=== PATIENT | female | born 1995 | race Caucasian/White ===

== ENCOUNTER 2023-04-23 17:08 | Inpatient (IN) ==
[2023-04-23] MEDS ORDERED: LORazepam 1 MG TAB PO STA (17:51)
--- NOTE | 2023-04-23 17:51 | Emergency Department Note ---
Impression & Plan Depression with suicidal ideation, Anxiety ED Provider Note NAME: TAMAR BAXTER AGE: 27 SEX: F : 1995 ARRIVES VIA: Walk-In INFORMANT: Patient, ED PROVIDER(S): Roberto Reyna DO CHIEF COMPLAINT: Mental health evaluation HPI: The patient is a 27-year-old female who presented to the emergency department for an evaluation of mental health issues. The patient has a history of depression and anxiety in the past. The patient has no history of suicidal attempt gesture or admission for mental health issues. 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 She goes to [employer] in [facility]. She normally lives in [facility]. The patient states that [place] [address] She started having what she describes as intrusive thoughts including thoughts that she should kill herself. She was having thoughts of jumping off a bridge [place] [address] as well as driving her car off the road and getting into a major accident. The patient has many stressors. She did review some of her stressors which include her son as well as her significant other. She also describes stressors at work. The patient presented to the emergency department requesting help because she did not feel safe. ROS: See above HPI for pertinent positives & negatives. A total of 10 systems reviewed and were otherwise negative. PAST MEDICAL HISTORY: See Below PAST SURGICAL HISTORY: See Below FAMILY HISTORY: See Below SOCIAL HISTORY: See Below HOME MEDICATIONS: See Below ALLERGIES: See Below VITALS: See Below PHYSICAL EXAMINATION: GENERAL: The patient is awake and alert. The patient is very anxious. She appears tearful. EYES: The conjunctivae are clear. The pupils are round and reactive. EARS, NOSE, MOUTH AND THROAT: The nose is without any evidence of any deformity. NECK: The neck is nontender and supple. RESPIRATORY: Normal respiratory effort is noted there is no evidence of wheezing rhonchi or rales CARDIOVASCULAR: Regular rate and rhythm noted there no murmurs rubs or gallops normal S1 normal S2. GASTROINTESTINAL: The abdomen is soft. Abdomen is nontender. MUSCULOSKELETAL/EXTREMITIES: There is no evidence of gross deformity full range of motion is noted in the hips and shoulders. SKIN: There is no obvious evidence of any rash. There are no petechiae, pallor or cyanosis noted. NEUROLOGIC: Patient is awake alert and oriented x3 strength is symmetric patellar reflexes are 2+ bilaterally PSYCH: The patient makes poor eye contact at times. Her affect is very flat. She is currently admitting to suicidal ideation with a plan to hurt herself either by jumping off a bridge or crashing her car. MEDICAL DECISION MAKING: The patient is a 27-year-old female who presented to the emergency department for an evaluation of depression with suicidal ideation. The patient's been having issues especially over the last few weeks. She has many stressors. The patient stopped our facility because she did not feel safe. She was [place] and [place]. I discussed the patient's laboratory results with her. She was medically cleared in the emergency department. The patient was evaluated by the mental health residential case manager. She was felt to be a good candidate for inpatient management. At [facility] She has a referral pending to [facility] Triage Nursing notes reviewed. Prior medical records reviewed Vital Signs: reviewed and remarkable for elevated blood pressure. Differential diagnosis: Mood disorder, infection, hypoglycemia, electrolyte abnormalities, cardiac sources, intracerebral event, toxicologic, trauma, neurologic, as well as other pathologies. ER treatment provided: See below Diagnostics interpreted by me: ECG: none Laboratory studies: As stated above and show below. Imaging studies: See below. Consultation(s): I discussed this case with the emergency department off residential case manager. The patient was evaluated by the delegate from [facility]. She was felt to be a good candidate for inpatient management on our unit. I did sign the patient's 201 at this time Past Med/Surg History Medical History Anxiety Depression Surgical History H/O bariatric surgery Social History Smoking Status: Never smoker Feels Safe at Home: Yes Gender Identity: Female Allergies Allergies Allergy/AdvReac Type Severity Reaction Status Date / Time No Known Allergies Allergy Unverified 04/23/23 19:26 Home Meds Home Medications Medication Instructions Recorded Confirmed No Known Home Medications 04/23/23 04/23/23 Results & Data (ED) Vital Signs Vital Signs - 24 hr 04/23/23 17:13 Temperature 36.9 C Temperature Source Temporal Artery Scan Pulse Rate 89 Respiratory Rate 18 Respiratory Effort / Characteristics Non-Labored Respiratory Depth Normal Respiratory Pattern Regular Blood Pressure 141/92 H Blood Pressure Mean 108 Pulse Oximetry 97 Oxygen Delivery Method Room Air Sepsis Recent Fever Within 48 Hours No Sepsis New/Unexplained Change in Mental Status N/A Sepsis Action Taken by Nursing No Action Required Home Medications Current Medication List: was personally reviewed by me Laboratory Data Attestation: I reviewed the patient's lab results. 04/23/23 17:45 04/23/23 17:45 Lab Results 04/23/23 04/23/23 04/23/23 Range/Units 17:35 17:35 17:35 WBC (4.8-10.8) K/ul RBC (4.20-5.40) M/uL Hgb (12.0-16.0) g/dl Hct (37.0-47.0) % MCV (80.0-100.0) fL MCH (25.0-34.0) pg MCHC (32.0-36.0) g/dL RDW Std Deviation (36.4-46.3) fL RDW Coeff of Rola (11.5-14.5) % Plt Count (130-400) K/uL MPV (9.4-12.4) fL Immature Gran % (Auto) % Neut % (Auto) % Lymph % (Auto) % [place] % (Auto) % Eos % (Auto) % Baso % (Auto) % Neut # (Auto) (1.40-6.50) K/uL Lymph # (Auto) (1.20-3.40) K/uL [place] # (Auto) (0.11-0.59) K/uL Eos # (Auto) (0.00-0.50) K/uL Baso # (Auto) (0.00-0.20) K/uL Immature Gran # (Auto) (0.01-0.20) K/uL Sodium (136-145) mmol/L Potassium (3.5-5.1) mmol/L Chloride (98-107) mmol/L Carbon Dioxide (21-32) mmol/L Anion Gap (3-11) BUN (6-23) mg/dl Creatinine (0.6-1.2) mg/dl Est Cr Clr Drug Dosing ml/min Est GFR ( Amer) ml/min Est GFR (Non-Af Amer) ml/min BUN/Creatinine Ratio (10-20) Glucose (70-99(Fasting)) mg/dl Calcium (8.6-10.3) mg/dl Total Bilirubin (0.2-1.0) mg/dl AST (13-39) U/L ALT (7-52) U/L Alkaline Phosphatase (34-104) U/L Total Protein (6.0-8.3) gm/dl Albumin (3.4-5.0) gm/dl Globulin (2.5-4.0) gm/dl Albumin/Globulin Ratio (0.9-2) TSH (0.300-4.500) uIu/ml HCG, Qual (Negative) Urine Color Yellow Urine Appearance Clear (Clear) Urine pH 6.5 (4.5-7.5) Ur Specific [place] 1.018 (1.000-1.030) Urine Protein Negative (Negative) Urine Glucose (UA) Negative (Negative) Urine Ketones 1+ H (Negative) Urine Blood Negative (Negative) Urine Nitrite Negative (Negative) Urine Bilirubin Negative (Negative) Urine Urobilinogen Negative (Negative) Ur Leukocyte Esterase Trace H (Negative) Urine WBC (Auto) 1-5 (0-5) /hpf Urine RBC (Auto) 0-4 (0-4) /hpf U Hyaline Cast (Auto) 5-10 H (0-5) /lpf U Epithel Cells (Auto) >30 H (0-5) /lpf Urine Bacteria (Auto) 1+ H (Negative) Salicylates (3.0-30) mg/dl Urine Opiates Screen Neg (Neg) Ur Methadone, Qual Neg (Neg) Acetaminophen (10-30) ug/ml Urine Barbiturates Neg (Neg) Ur Phencyclidine (PCP) Neg (Neg) U Amphetamin/Meth Scrn Neg (Neg) MDMA (Ecstasy) Screen Neg (Neg) U Benzodiazepines Scrn Neg (Neg) Ur Cocaine Metabolite Neg (Neg) U Marijuana (THC) Screen Neg (Neg) Ethyl Alcohol mg/dL (<10.0) mg/dl SARS-CoV-2, RNA, NAAT NEGATIVE (NEGATIVE) 04/23/23 04/23/23 04/23/23 Range/Units 17:45 17:45 17:45 WBC 6.18 (4.8-10.8) K/ul RBC 4.79 (4.20-5.40) M/uL Hgb 13.4 (12.0-16.0) g/dl Hct 39.4 (37.0-47.0) % MCV 82.3 (80.0-100.0) fL MCH 28.0 (25.0-34.0) pg MCHC 34.0 (32.0-36.0) g/dL RDW Std Deviation 40.0 (36.4-46.3) fL RDW Coeff of Rola 13.4 (11.5-14.5) % Plt Count 187 (130-400) K/uL MPV 10.1 (9.4-12.4) fL Immature Gran % (Auto) 0.2 % Neut % (Auto) 69.3 % Lymph % (Auto) 23.8 % [place] % (Auto) 5.5 % Eos % (Auto) 0.6 % Baso % (Auto) 0.6 % Neut # (Auto) 4.28 (1.40-6.50) K/uL Lymph # (Auto) 1.47 (1.20-3.40) K/uL [place] # (Auto) 0.34 (0.11-0.59) K/uL Eos # (Auto) 0.04 (0.00-0.50) K/uL Baso # (Auto) 0.04 (0.00-0.20) K/uL Immature Gran # (Auto) 0.01 (0.01-0.20) K/uL Sodium 138 (136-145) mmol/L Potassium 3.5 (3.5-5.1) mmol/L Chloride 105 (98-107) mmol/L Carbon Dioxide 25 (21-32) mmol/L Anion Gap 8 (3-11) BUN 11 (6-23) mg/dl Creatinine 0.61 (0.6-1.2) mg/dl Est Cr Clr Drug Dosing 140.8 ml/min Est GFR ( Amer) 142.0 ml/min Est GFR (Non-Af Amer) 122.5 ml/min BUN/Creatinine Ratio 18.0 (10-20) Glucose 95 (70-99(Fasting)) mg/dl Calcium 9.9 (8.6-10.3) mg/dl Total Bilirubin 0.7 (0.2-1.0) mg/dl AST 17 (13-39) U/L ALT 10 (7-52) U/L Alkaline Phosphatase 58 (34-104) U/L Total Protein 7.7 (6.0-8.3) gm/dl Albumin 4.9 (3.4-5.0) gm/dl Globulin 2.8 (2.5-4.0) gm/dl Albumin/Globulin Ratio 1.8 (0.9-2) TSH 1.442 (0.300-4.500) uIu/ml HCG, Qual (Negative) Urine Color Urine Appearance (Clear) Urine pH (4.5-7.5) Ur Specific [place] (1.000-1.030) Urine Protein (Negative) Urine Glucose (UA) (Negative) Urine Ketones (Negative) Urine Blood (Negative) Urine Nitrite (Negative) Urine Bilirubin (Negative) Urine Urobilinogen (Negative) Ur Leukocyte Esterase (Negative) Urine WBC (Auto) (0-5) /hpf Urine RBC (Auto) (0-4) /hpf U Hyaline Cast (Auto) (0-5) /lpf U Epithel Cells (Auto) (0-5) /lpf Urine Bacteria (Auto) (Negative) Salicylates < 3.0 L (3.0-30) mg/dl Urine Opiates Screen (Neg) Ur Methadone, Qual (Neg) Acetaminophen < 3 L (10-30) ug/ml Urine Barbiturates (Neg) Ur Phencyclidine (PCP) (Neg) U Amphetamin/Meth Scrn (Neg) MDMA (Ecstasy) Screen (Neg) U Benzodiazepines Scrn (Neg) Ur Cocaine Metabolite (Neg) U Marijuana (THC) Screen (Neg) Ethyl Alcohol mg/dL (<10.0) mg/dl SARS-CoV-2, RNA, NAAT (NEGATIVE) 04/23/23 04/23/23 Range/Units 17:45 17:45 WBC (4.8-10.8) K/ul RBC (4.20-5.40) M/uL Hgb (12.0-16.0) g/dl Hct (37.0-47.0) % MCV (80.0-100.0) fL MCH (25.0-34.0) pg MCHC (32.0-36.0) g/dL RDW Std Deviation (36.4-46.3) fL RDW Coeff of Rola (11.5-14.5) % Plt Count (130-400) K/uL MPV (9.4-12.4) fL Immature Gran % (Auto) % Neut % (Auto) % Lymph % (Auto) % [place] % (Auto) % Eos % (Auto) % Baso % (Auto) % Neut # (Auto) (1.40-6.50) K/uL Lymph # (Auto) (1.20-3.40) K/uL [place] # (Auto) (0.11-0.59) K/uL Eos # (Auto) (0.00-0.50) K/uL Baso # (Auto) (0.00-0.20) K/uL Immature Gran # (Auto) (0.01-0.20) K/uL Sodium (136-145) mmol/L Potassium (3.5-5.1) mmol/L Chloride (98-107) mmol/L Carbon Dioxide (21-32) mmol/L Anion Gap (3-11) BUN (6-23) mg/dl Creatinine (0.6-1.2) mg/dl Est Cr Clr Drug Dosing ml/min Est GFR ( Amer) ml/min Est GFR (Non-Af Amer) ml/min BUN/Creatinine Ratio (10-20) Glucose (70-99(Fasting)) mg/dl Calcium (8.6-10.3) mg/dl Total Bilirubin (0.2-1.0) mg/dl AST (13-39) U/L ALT (7-52) U/L Alkaline Phosphatase (34-104) U/L Total Protein (6.0-8.3) gm/dl Albumin (3.4-5.0) gm/dl Globulin (2.5-4.0) gm/dl Albumin/Globulin Ratio (0.9-2) TSH (0.300-4.500) uIu/ml HCG, Qual Negative (Negative) Urine Color Urine Appearance (Clear) Urine pH (4.5-7.5) Ur Specific [place] (1.000-1.030) Urine Protein (Negative) Urine Glucose (UA) (Negative) Urine Ketones (Negative) Urine Blood (Negative) Urine Nitrite (Negative) Urine Bilirubin (Negative) Urine Urobilinogen (Negative) Ur Leukocyte Esterase (Negative) Urine WBC (Auto) (0-5) /hpf Urine RBC (Auto) (0-4) /hpf U Hyaline Cast (Auto) (0-5) /lpf U Epithel Cells (Auto) (0-5) /lpf Urine Bacteria (Auto) (Negative) Salicylates (3.0-30) mg/dl Urine Opiates Screen (Neg) Ur Methadone, Qual (Neg) Acetaminophen (10-30) ug/ml Urine Barbiturates (Neg) Ur Phencyclidine (PCP) (Neg) U Amphetamin/Meth Scrn (Neg) MDMA (Ecstasy) Screen (Neg) U Benzodiazepines Scrn (Neg) Ur Cocaine Metabolite (Neg) U Marijuana (THC) Screen (Neg) Ethyl Alcohol mg/dL < 10.0 (<10.0) mg/dl SARS-CoV-2, RNA, NAAT (NEGATIVE) Administered Medications Discontinued Medications Lorazepam (Lorazepam 1 Mg Tab) 1 mg PO NOW STA Stop: 04/23/23 17:52 Last Admin: 04/23/23 22:49 Dose: Not Given Documented By: ML Discharge Plan Visit Data Chief Complaint: Mental Health Evaluation Stated Complaint: THOUGHTS OF HARMING SELF ED Provider: Roberto Reyna Discharge Problem: Depression with suicidal ideation, Anxiety Patient Disposition: Still a Patient Forms Stand Alone Forms: My [facility], Suicide Prevention Resources Prescriptions Prescriptions: No Action No Known Home Medications Referrals Referrals: PCP,NO [Primary Care Provider] -
[2023-04-23 17:59] LABS: Appearance Urine Clear (Clear); Bacteria Urine Automated 1+ (Negative); Bilirubin Urine Negative (Negative); Blood Urine Negative (Negative); Color Urine Yellow; Epithelial Cell Urine Auto >30 /lpf (0-5); Glucose Urine UA Negative (Negative); Ketones Urine 1+ (Negative); Leukocyte Esterase Urine Trace (Negative); Nitrite Urine Negative (Negative); Protein Urine Negative (Negative); RBC Urine Automated 0-4 /hpf (0-4); Specific Gravity Urine 1.018 (1.000-1.030); Urobilinogen Urine Negative (Negative); pH Urine 6.5 (4.5-7.5)
[2023-04-23 18:01] LABS: Basophils # (auto) 0.04 K/uL (0.00-0.20); Basophils % (auto) 0.6 %; Eosinophils # (auto) 0.04 K/uL (0.00-0.50); Eosinophils % (auto) 0.6 %; Hematocrit (blood only) 39.4 % (37.0-47.0); Hemoglobin 13.4 g/dl (12.0-16.0); Immature Granulocytes # (auto) 0.01 K/uL (0.01-0.20); Immature Granulocytes % (auto) 0.2 %; Lymphocytes # (auto) 1.47 K/uL (1.20-3.40); Lymphocytes % (auto) 23.8 %; Mean Corpuscular Volume 82.3 fL (80.0-100.0); Mean Platelet Volume 10.1 fL (9.4-12.4); Monocytes # (auto) 0.34 K/uL (0.11-0.59); Monocytes % (auto) 5.5 %; Neutrophils # (auto) 4.28 K/uL (1.40-6.50); Neutrophils % (auto) 69.3 %; Platelet Count 187 K/uL (130-400); RDW Coefficient of Variation 13.4 % (11.5-14.5); Red Blood Count 4.79 M/uL (4.20-5.40); White Blood Count 6.18 K/ul (4.8-10.8)
[2023-04-23 18:14] LABS: Amphetamines+Metham, Urine Neg (Neg); Barbiturates, Urine Neg (Neg); Benzodiazepine, Urine Neg (Neg); Cocaine, Urine Neg (Neg); MDMA (Ecstacy), Urine Neg (Neg); Methadone, Urine Neg (Neg); Opiate, Urine Neg (Neg); Phencyclidine, Urine Neg (Neg)
[2023-04-23 18:16] LABS: Albumin Globulin Ratio 1.8 (0.9-2); Albumin Level 4.9 gm/dl (3.4-5.0); Bilirubin,Total 0.7 mg/dl (0.2-1.0); Calcium 9.9 mg/dl (8.6-10.3); Creatinine Clr Calc Pharmacy 140.8 ml/min; Est GFR (Non-African American) 122.5 ml/min; Globulin 2.8 gm/dl (2.5-4.0); Potassium 3.5 mmol/L (3.5-5.1); Pregnancy Test, Serum Negative (Negative); Total Protein 7.7 gm/dl (6.0-8.3)
[2023-04-23 18:39] LABS: Thyroid Stimulating Hormone 1.442 uIu/ml (0.300-4.500)
[2023-04-23 20:08] LABS: Acetaminophen < 3 ug/ml (10-30); Salicylate < 3.0 mg/dl (3.0-30)
[2023-04-23] MEDS ORDERED: MAGNESIUM HYDROXIDE SUSP 30 ML UDC PO PRN (23:42)
[2023-04-23] MEDS ORDERED: SODIUM CHLORIDE 0.65% NA SOLN 45 ML (OCEAN) PRN (23:42)
[2023-04-23] MEDS ORDERED: ACETAMINOPHEN 325 MG TAB PO PRN (23:42)
[2023-04-23] MEDS ORDERED: ALUMINUM/MAGNESIUM SUSP 30 ML UDC PO PRN (23:42)
[2023-04-23] MEDS ORDERED: BISMUTH SUBSALICYLATE LIQD 236 ML PO PRN (23:42)
[2023-04-23] MEDS ORDERED: hydrOXYzine HCl 25 MG TAB PO PRN ×2 (23:42)
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
[2023-04-24] MEDS ORDERED: hydrOXYzine HCl 10 MG TAB PO PRN (15:34)
[2023-04-24] MEDS ORDERED: hydrOXYzine HCl 25 MG TAB PO PRN (15:34)
[2023-04-24] MEDS: FERROUS SULFATE 325 MG TAB PO SCH (17:20)
[2023-04-24] MEDS: MULTIVITAMIN TAB PO SCH (17:22)
[2023-04-24] MEDS: CALCIUM CITRATE 950 MG TAB PO SCH (21:25)
[2023-04-25] MEDS ORDERED: SERTRALINE HCL 50 MG TABLET PO SCH (09:00)
[2023-04-25] MEDS: FERROUS SULFATE 325 MG TAB PO SCH (09:00)
[2023-04-25] MEDS: CALCIUM CITRATE 950 MG TAB PO SCH ×3 (09:01→21:02)
[2023-04-25] MEDS: MULTIVITAMIN TAB PO SCH (09:01)
--- NOTE | 2023-04-25 09:18 | Psychiatric Progress Note ---
Date of Service April 25, 2023 Impression / Recommendations Impression Tamar Monteiro is a 27 year old woman with a history of depression, anxiety, trauma, recent bariatric sleeve gastrectomy surgery who was admitted for SI with plan of crashing her car or jumping from a bridge. Diagnostically consistent with unspecified depressive disorder-most likely MDD, CECIL with panic attacks and PTSD/complex trauma. She is deemed in need of psychiatric hospitalization for diagnostic clarification, safety and stabilization, medication management and development of further coping skills. 04/25/2023: Still with significant anxiety, tolerated initial dose of sertraline, agreeable to dose increase to effective dose of 50mg daily, working on using coping skills and anticipating potential stressors after she leaves the hospital. Overall, I spent a total of 35 minutes with this case including review of chart records, direct evaluation of the patient at bedside, counseling the patient, discussion during interdisciplinary treatment rounds, risk assessment, and documentation in the electronic health record. (1) Depression with suicidal ideation: (2) Generalized anxiety disorder with panic attacks: (3) Post traumatic stress disorder (PTSD): Plan 04/25/2023: Increase sertraline to 50mg daily tomorrow. Discontinue iron supplement, switch to multivitamin with iron. Vistaril 10mg q4H prn for anxiety/panic attacks. 04/24/2023: The patient was admitted to the [facility]) on q15 min checks (behavioral with suicide precautions) for safety. The patient will participate in group, recreational, and milieu therapies and will be offered additional individual and family sessions as clinically appropriate. -will start zoloft 25mg daily tomorrow morning -continue prior to admission calcium, iron, MVM supplements -discussed option for prazosin, she prefers not to start any additional medications at this time Inventory Assets Strengths: supportive relationships, willing to get treatment, resilient Needs: safety and stabilization, medication adjustment, additional coping skills, increased outpatient services Suicide Risk Level Suicide Risk Level: Moderate (q15 min suicide checks) (severe anxiety and depression with SI with plan prior to admission but mood improving, feels safe in the hospital, able to safety contract and agrees to let nursing/staff know should they develop plan, intent or feel unable to remain safe.) Suicide Risk Level Comments: Risk Factors Assessment Male: No : Yes Do You Have Access To A Gun?: No (locked in the home she doesn't have access) Health Problems: No Mental Health Diagnoses: Yes Substance Use Disorders: No Previous Attempt: No Family History of Suicide: Yes Previous Psychiatric Hospitalization: No Protective Factors Assessment : Yes Responsible for Young Children: Yes Employed: Yes Stable Relationships: Yes Supportive Family: Yes () Good Rapport with Provider: Yes (therapist) Interval History Identifying Information TAMAR MONTEIRO 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 Chief Complaint "I'm ok". Review of Systems Sleep Information Total Hours of Sleep: 9 Meal Information Percent Meal Consumed - Breakfast: 50 Percent Meal Consumed - Lunch: 30 Percent Meal Consumed - Dinner: 100 Nutrition Comment: pt. 5 months post bariatric surgery; eats 6 small meals/day Subjective Subjective Patient was seen & assessed and interval progress reviewed with treatment team nursing and social work. Having so more anxiety today due to being away from her and thinking about upcoming stressors but less depression. Had stomach issues last evening with higher dose of iron so prefers to switch to M with iron until she can return to her home supplement dosages. No side effects so far from sertraline, agreeable to dose increase. Using some good coping skill strategies. Reviewed when use of Vistaril prn could be helpful. Physical Exam Psychiatric Orientation: alert and oriented x 3 Apperance: appropriately dressed and appropriately groomed Eye Contact: good eye contact Motor Behavior: no abnormal motor movements Speech: normal rate/rhythm/volume of speech Affect: + anxious affect Mood: + depressed mood and + anxious mood Thought Process: + circumstantial thought process Thought Content: reality based without delusions Suicidal Thoughts: denies suicidal thoughts, denies suicidal plan and denies suicidal intent Homicidal Thoughts: denies homicidal thoughts Hallucinations: no auditory hallucinations and no visual hallucinations Cognition: recent memory grossly intact, remote memory grossly intact, attention grossly intact and language grossly intact Estimated Intelligence: consistent with education level Insight: + fair insight Judgment: + fair judgement Vital Signs (Past 24 Hours) Last Vital Signs Temp 36.9 C 04/25/23 06:41 Pulse 83 04/25/23 06:42 Resp 16 04/25/23 06:41 BP 108/74 04/25/23 06:42 Pulse Ox 97 04/24/23 06:56 O2 Del Method Room Air 04/24/23 06:56 Results & Data ([facility]) Current Inpatient Medications Current Inpatient Medications: Current Inpatient Medications Acetaminophen (Acetaminophen 325 Mg Tab) 650 mg PO Q4H PRN PRN Reason: Headache or Minor Fever Stop: 05/23/23 23:41 Al Hydrox/Mg Hydrox/Simethicone (Aluminum/Magnesium Susp 30 Ml Udc) 30 ml PO Q4H PRN PRN Reason: GI Upset Stop: 05/23/23 23:41 Last Admin: 04/24/23 19:59 Dose: 30 ml Bismuth Subsalicylate (Bismuth Subsalicylate Liqd 236 Ml) 15 ml PO PRN PRN PRN Reason: Loose Stool Stop: 05/23/23 23:41 Calcium Citrate (Calcium Citrate 950 Mg Tab) 475 mg PO TID CATHI Stop: 05/24/23 20:59 Last Admin: 04/25/23 09:01 Dose: 475 mg Ferrous Sulfate (Ferrous Sulfate 325 Mg Tab) 162.5 mg PO BIDM [facility] Stop: 05/24/23 17:44 Last Admin: 04/25/23 09:00 Dose: Not Given Hydroxyzine HCl (Hydroxyzine Hcl 10 Mg Tab) 10 mg PO Q4H PRN PRN Reason: Anxiety Stop: 05/23/23 23:41 Hydroxyzine HCl (Hydroxyzine Hcl 25 Mg Tab) 25 mg PO HSZ PRN PRN Reason: Insomnia Stop: 05/23/23 23:41 Magnesium Hydroxide (Magnesium Hydroxide Susp 30 Ml Udc) 30 ml PO DAILY PRN PRN Reason: Constipation Stop: 05/23/23 23:41 Multivitamins (Multivitamin Tab) 1 tab PO QAM [facility] Stop: 05/24/23 15:44 Last Admin: 04/25/23 09:01 Dose: 1 tab Sertraline HCl (Sertraline Hcl 50 Mg Tablet) 25 mg PO QAM [facility] Stop: 05/25/23 08:59 Last Admin: 04/25/23 09:01 Dose: 25 mg Sodium Chloride (Sodium Chloride 0.65% Na Soln 45 Ml ([place])) 1 - 2 sprays NA PRN PRN PRN Reason: Nasal Dryness/Congestion Stop: 05/23/23 23:41 Mental Health & Subst Abuse Tx Therapist Name of Therapist: Dionic[facility] Post Discharge Appointments Primary Care Physician Name Of Family Doctor/PCP: CARMEN Andrade
[2023-04-26] MEDS: CALCIUM CITRATE 950 MG TAB PO SCH ×3 (08:46→20:32)
[2023-04-26] MEDS: CEROVITE ADV FORMULA TAB PO SCH (08:47)
[2023-04-26] MEDS: SERTRALINE HCL 50 MG TABLET PO SCH (08:47)
--- NOTE | 2023-04-26 09:26 | Psychiatric Progress Note ---
Date of Service April 26, 2023 Impression / Recommendations Impression Tamar Monteiro is a 27 year old woman with a history of depression, anxiety, trauma, recent bariatric sleeve gastrectomy surgery who was admitted for SI with plan of crashing her car or jumping from a bridge. Diagnostically consistent with unspecified depressive disorder-most likely MDD, CECIL with panic attacks and PTSD/complex trauma. She is deemed in need of psychiatric hospitalization for diagnostic clarification, safety and stabilization, medication management and development of further coping skills. 04/26/2023: Anxiety lessening, no SI. Tolerating higher dose of sertraline. Overall, I spent a total of 25 minutes with this case including review of chart records, direct evaluation of the patient at bedside, counseling the patient, discussion during interdisciplinary treatment rounds, risk assessment, and documentation in the electronic health record. (1) Depression with suicidal ideation: (2) Generalized anxiety disorder with panic attacks: (3) Post traumatic stress disorder (PTSD): Plan 04/26/2023: Continue sertraline 50mg daily. Plan for family meeting tomorrow. melatonin 6mg HS prn. 04/25/2023: Increase sertraline to 50mg daily tomorrow. Discontinue iron supplement, switch to multivitamin with iron. Vistaril 10mg q4H prn for anxiety/panic attacks. 04/24/2023: The patient was admitted to the [facility] ([facility]) on q15 min checks (behavioral with suicide precautions) for safety. The patient will participate in group, recreational, and milieu therapies and will be offered additional individual and family sessions as clinically appropriate. -will start zoloft 25mg daily tomorrow morning -continue prior to admission calcium, iron, MVM supplements -discussed option for prazosin, she prefers not to start any additional medications at this time Inventory Assets Strengths: supportive relationships, willing to get treatment, resilient Needs: safety and stabilization, medication adjustment, additional coping skills, increased outpatient services Suicide Risk Level Suicide Risk Level: Moderate (q15 min suicide checks) (severe anxiety and depression with SI with plan prior to admission but mood improving, feels safe in the hospital, able to safety contract and agrees to let nursing/staff know should they develop plan, intent or feel unable to remain safe.) Suicide Risk Level Comments: Risk Factors Assessment Male: No : Yes Do You Have Access To A Gun?: No ([facility] in the home she doesn't have access) Health Problems: No Mental Health Diagnoses: Yes Substance Use Disorders: No Previous Attempt: No Family History of Suicide: Yes Previous Psychiatric Hospitalization: No Protective Factors Assessment : Yes Responsible for Young Children: Yes Employed: Yes Stable Relationships: Yes Supportive Family: Yes () Good Rapport with Provider: Yes (therapist) Interval History Identifying Information TAMAR MONTEIRO is 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 Chief Complaint "I'm ok". Review of Systems Sleep Information Total Hours of Sleep: 6.5 Meal Information Percent Meal Consumed - Breakfast: 25 Percent Meal Consumed - Lunch: 25 Percent Meal Consumed - Dinner: 25 Nutrition Comment: Subjective Subjective Patient was seen & assessed and interval progress reviewed with treatment team nursing and social work. Anxious at times but processing well. Attending groups even though this is outside her comfort zone. Anxious last night but able to process with staff and didn't require any prn medications. Took prn Vistaril for insomnia with some AM grogginess, has taken melatonin before, would like to try this. No side effects from sertraline at higher dose today. Physical Exam Psychiatric Orientation: alert and oriented x 3 Apperance: appropriately dressed and appropriately groomed Eye Contact: good eye contact Motor Behavior: no abnormal motor movements Speech: normal rate/rhythm/volume of speech Affect: + anxious affect Mood: + depressed mood and + anxious mood Thought Process: + circumstantial thought process Thought Content: reality based without delusions Suicidal Thoughts: denies suicidal thoughts, denies suicidal plan and denies suicidal intent Homicidal Thoughts: denies homicidal thoughts Hallucinations: no auditory hallucinations and no visual hallucinations Cognition: recent memory grossly intact, remote memory grossly intact, attention grossly intact and language grossly intact Estimated Intelligence: consistent with education level Insight: good insight Judgment: + fair judgement Vital Signs (Past 24 Hours) Last Vital Signs Temp 37 C 04/26/23 06:34 Pulse 82 04/26/23 06:34 Resp 16 04/26/23 06:34 BP 107/76 04/26/23 06:34 Pulse Ox 97 04/24/23 06:56 O2 Del Method Room Air 04/24/23 06:56 Results & Data ([facility]) Current Inpatient Medications Current Inpatient Medications: Current Inpatient Medications Acetaminophen (Acetaminophen 325 Mg Tab) 650 mg PO Q4H PRN PRN Reason: Headache or Minor Fever Stop: 05/23/23 23:41 Al Hydrox/Mg Hydrox/Simethicone (Aluminum/Magnesium Susp 30 Ml Udc) 30 ml PO Q4H PRN PRN Reason: GI Upset Stop: 05/23/23 23:41 Last Admin: 04/24/23 19:59 Dose: 30 ml Bismuth Subsalicylate (Bismuth Subsalicylate Liqd 236 Ml) 15 ml PO PRN PRN PRN Reason: Loose Stool Stop: 05/23/23 23:41 Calcium Citrate (Calcium Citrate 950 Mg Tab) 475 mg PO TID CATHI Stop: 05/24/23 20:59 Last Admin: 04/26/23 08:46 Dose: 475 mg Hydroxyzine HCl (Hydroxyzine Hcl 10 Mg Tab) 10 mg PO Q4H PRN PRN Reason: Anxiety Stop: 05/23/23 23:41 Hydroxyzine HCl (Hydroxyzine Hcl 25 Mg Tab) 25 mg PO HSZ PRN PRN Reason: Insomnia Stop: 05/23/23 23:41 Last Admin: 04/25/23 21:03 Dose: 25 mg Magnesium Hydroxide (Magnesium Hydroxide Susp 30 Ml Udc) 30 ml PO DAILY PRN PRN Reason: Constipation Stop: 05/23/23 23:41 Multivitamins/Minerals (Cerovite Adv Formula Tab) 1 tab PO QAM CATHI Stop: 05/26/23 08:59 Last Admin: 04/26/23 08:47 Dose: 1 tab Sertraline HCl (Sertraline Hcl 50 Mg Tablet) 50 mg PO QAM CATHI Stop: 05/26/23 08:59 Last Admin: 04/26/23 08:47 Dose: 50 mg Sodium Chloride (Sodium Chloride 0.65% Na Soln 45 Ml ([place])) 1 - 2 sprays NA PRN PRN PRN Reason: Nasal Dryness/Congestion Stop: 05/23/23 23:41 Mental Health & Subst Abuse Tx Therapist Name of Therapist: Dionicio Bauer Post Discharge Appointments Primary Care Physician Name Of Family Doctor/PCP: CARMEN Andrade Contact Information Discharge Discharge Address: [address] [place], [place] [address] [id number]
[2023-04-26] MEDS ORDERED: MELATONIN 3 MG TAB PO PRN (15:50)
[2023-04-27] MEDS: CEROVITE ADV FORMULA TAB PO SCH (08:43)
[2023-04-27] MEDS: CALCIUM CITRATE 950 MG TAB PO SCH (08:43)
[2023-04-27] MEDS: SERTRALINE HCL 50 MG TABLET PO SCH (08:44)
--- NOTE | 2023-04-27 09:18 | Discharge Summary ---
Date of Service April 27, 2023 History of Present Illness Lindsey presented to the hospital after developing SI with plan of jumping from a bridge or crashing her car into a tree while commuting home from her graduate school classes. 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 On they got the news that the residential treatment facility is trying to send her son home soon and on her drive home from school "I really started to spiral". Has experienced periods of chronic intermittent passive SI in the past but never usually to this intensity. She notes that yesterday "I was 3 hours away and thinking they wouldn't have to see me so I wouldn't traumatize them so it took that barrier out of it" in why she thinks her suicidal ideation worsened as usually her family is a significant deterrent to thinking of any plans. She feels like the anxiety spirals set off on the depression. She notes "I don't feel safe a lot of the time". She endorses depressive symptoms including tearfulness, self-guilt, helplessness, decreased motivation, and chronically poor sleep (trouble staying asleep due to waking with nightmares frequently via startling awake). Started to have SI while driving to school on Tuesday and then started to make a plan yesterday while driving home. She endorses anxiety symptoms including excessive worry and panic attacks with heart racing, hard to breath which tend to occur once per week but have been daily the last week since finding out about her son coming home. Also endorses social anxiety. She endorses PTSD symptoms including avoidance, hypervigilance, emotional lability, decreased sleep/night terrors. She is currently prescribed Vistaril prn but doesn't usually take this as it causes drowsiness. She has a lot of anxiety about medication dulling her concentration or ability to function at work. Psychiatric ROS notable for no current nor history of symptoms of laura, psychosis, nor eating disorder nor self-harm. Had history of some counting compulsions as a child and chewing her lip and then after her bariatric surgery but has improved. Physical Exam Vital Signs (Past 24 Hours) Last Vital Signs Temp 37.1 C 04/27/23 06:37 Pulse 77 04/27/23 06:38 Resp 16 04/27/23 06:37 BP 107/72 04/27/23 06:38 Pulse Ox 97 04/24/23 06:56 O2 Del Method Room Air 04/24/23 06:56 See admission H&P and DOD summary. Principal Diagnosis Unspecified depressive disorder with anxious distress Psychiatric Data See daily stay summary. In short, patient was engaged with the social/therapeutic milieu of the unit, safety was maintained and the patient was cooperative with care. Medication changes included initiation of sertraline 50mg daily for depression, anxiety and PTSD as well as option to use Vistaril 10mg daily prn for anxiety/panic attacks and they tolerated this well. Option to increase sertraline in the future if needed to further target anxiety/depression/PTSD symptoms. A family session was held and safety plan was completed prior to discharge. She actively and insightfully participated in safety planning and in discussions about ways to seek support and recognizing warning signs and utilizing coping skills. Reviewed mobile apps that could be used for additional ways to have their safety plan and contacts easily available should thoughts of SI re-emerge in the future. Reviewed importance of seeking emergency care should SI intensify, worsen or should they feel unsafe in the future which they agree to do. On the day of discharge she stated her mood was "good, hopeful, some anxiety about returning to work" and remained future-oriented including seeing her family, being outside, seeing her dog and engaging in aftercare appointments for therapy and with her primary care provider. Day of Discharge Assessment Today the patient voices readiness for discharge. They note improvement in mood and anxiety. They deny thoughts of harm to self or others. Thoughts are organized and they are clinically improved from admission. There is no evidence of psychosis. They improved in the hospital with support and medication adjustments. They agree to take medications as prescribed and keep follow-up appointments. At the time of the discharge they are deemed to be stable and appropriate for outpatient level of care. They are not deemed to be at imminent risk of harm to self or others. They are aware of emergency and crisis services. Knows to call 911 or go to nearest emergency care center if in a crisis which cannot be handled as an outpatient. Overall, I spent a total of 40 minutes with this discharge including review of chart records, direct evaluation of the patient at bedside, counseling the patient, discussion during interdisciplinary treatment rounds, risk assessment, and documentation in the electronic health record. Transition of Care Transition Of Care Record: was reviewed with the patient Advance Directives Advance Directives Information Provided: Yes Advance Directives: No Mental Health Advance Directive: No Advance Directives on File: No Living Will: No Power of Door Maker: No Advance Directives Reason:: Declines as Mental Health Visit. Suicide Risk Level Suicide Risk Level Comments: Acute risk is low given improvement in mood and denial of SI, lack of access to lethal means, hopefulness. 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 Counseled on ways to reduce acute and chronic risk including engaging with outpatient providers, using safety plan if needed, utilizing supports, taking medication, and using coping skills. Modifiable risk factors of SI and depression were addressed during hospitalization through development of new coping skills, family meeting, safety planning, and medication adjustments. Risk Factors Assessment Male: No : Yes Do You Have Access To A Gun?: No (locked in the home she doesn't have access) Health Problems: No Mental Health Diagnoses: Yes Substance Use Disorders: No Previous Attempt: No Family History of Suicide: Yes Previous Psychiatric Hospitalization: No Hopelessness: No Protective Factors Assessment : Yes Responsible for Young Children: Yes Employed: Yes Stable Relationships: Yes Supportive Family: Yes () Good Rapport with Provider: Yes (therapist) Discharge Data Lab Results 04/23/23 04/23/23 04/23/23 17:35 17:35 17:35 WBC RBC Hgb Hct MCV MCH MCHC RDW Std Deviation RDW Coeff of Rola Plt Count MPV Immature Gran % (Auto) Neut % (Auto) Lymph % (Auto) [place] % (Auto) Eos % (Auto) Baso % (Auto) Neut # (Auto) Lymph # (Auto) [place] # (Auto) Eos # (Auto) Baso # (Auto) Immature Gran # (Auto) Sodium Potassium Chloride Carbon Dioxide Anion Gap BUN Creatinine Est Cr Clr Drug Dosing Est GFR ( Amer) Est GFR (Non-Af Amer) BUN/Creatinine Ratio Glucose Calcium Total Bilirubin AST ALT Alkaline Phosphatase Total Protein Albumin Globulin Albumin/Globulin Ratio TSH HCG, Qual Urine Color Yellow Urine Appearance Clear Urine pH 6.5 Ur Specific Ruston 1.018 Urine Protein Negative Urine Glucose (UA) Negative Urine Ketones 1+ H Urine Blood Negative Urine Nitrite Negative Urine Bilirubin Negative Urine Urobilinogen Negative Ur Leukocyte Esterase Trace H Urine WBC (Auto) 1-5 Urine RBC (Auto) 0-4 U Hyaline Cast (Auto) 5-10 H U Epithel Cells (Auto) >30 H Urine Bacteria (Auto) 1+ H Salicylates Urine Opiates Screen Neg Ur Methadone, Qual Neg Acetaminophen Urine Barbiturates Neg Ur Phencyclidine (PCP) Neg U Amphetamin/Meth Scrn Neg MDMA (Ecstasy) Screen Neg U Benzodiazepines Scrn Neg Ur Cocaine Metabolite Neg U Marijuana (THC) Screen Neg Ethyl Alcohol mg/dL SARS-CoV-2, RNA, NAAT NEGATIVE 04/23/23 04/23/23 04/23/23 17:45 17:45 17:45 WBC 6.18 RBC 4.79 Hgb 13.4 Hct 39.4 MCV 82.3 MCH 28.0 MCHC 34.0 RDW Std Deviation 40.0 RDW Coeff of Rola 13.4 Plt Count 187 MPV 10.1 Immature Gran % (Auto) 0.2 Neut % (Auto) 69.3 Lymph % (Auto) 23.8 Concho % (Auto) 5.5 Eos % (Auto) 0.6 Baso % (Auto) 0.6 Neut # (Auto) 4.28 Lymph # (Auto) 1.47 [place] # (Auto) 0.34 Eos # (Auto) 0.04 Baso # (Auto) 0.04 Immature Gran # (Auto) 0.01 Sodium 138 Potassium 3.5 Chloride 105 Carbon Dioxide 25 Anion Gap 8 BUN 11 Creatinine 0.61 Est Cr Clr Drug Dosing 140.8 Est GFR ( Amer) 142.0 Est GFR (Non-Af Amer) 122.5 BUN/Creatinine Ratio 18.0 Glucose 95 Calcium 9.9 Total Bilirubin 0.7 AST 17 ALT 10 Alkaline Phosphatase 58 Total Protein 7.7 Albumin 4.9 Globulin 2.8 Albumin/Globulin Ratio 1.8 TSH 1.442 HCG, Qual Urine Color Urine Appearance Urine pH Ur Specific Ruston Urine Protein Urine Glucose (UA) Urine Ketones Urine Blood Urine Nitrite Urine Bilirubin Urine Urobilinogen Ur Leukocyte Esterase Urine WBC (Auto) Urine RBC (Auto) U Hyaline Cast (Auto) U Epithel Cells (Auto) Urine Bacteria (Auto) Salicylates < 3.0 L Urine Opiates Screen Ur Methadone, Qual Acetaminophen < 3 L Urine Barbiturates Ur Phencyclidine (PCP) U Amphetamin/Meth Scrn MDMA (Ecstasy) Screen U Benzodiazepines Scrn Ur Cocaine Metabolite U Marijuana (THC) Screen Ethyl Alcohol mg/dL SARS-CoV-2, RNA, NAAT 04/23/23 04/23/23 17:45 17:45 WBC RBC Hgb Hct MCV MCH MCHC RDW Std Deviation RDW Coeff of Rola Plt Count MPV Immature Gran % (Auto) Neut % (Auto) Lymph % (Auto) [place] % (Auto) Eos % (Auto) Baso % (Auto) Neut # (Auto) Lymph # (Auto) [place] # (Auto) Eos # (Auto) Baso # (Auto) Immature Gran # (Auto) Sodium Potassium Chloride Carbon Dioxide Anion Gap BUN Creatinine Est Cr Clr Drug Dosing Est GFR ( Amer) Est GFR (Non-Af Amer) BUN/Creatinine Ratio Glucose Calcium Total Bilirubin AST ALT Alkaline Phosphatase Total Protein Albumin Globulin Albumin/Globulin Ratio TSH HCG, Qual Negative Urine Color Urine Appearance Urine pH Ur Specific [place] Urine Protein Urine Glucose (UA) Urine Ketones Urine Blood Urine Nitrite Urine Bilirubin Urine Urobilinogen Ur Leukocyte Esterase Urine WBC (Auto) Urine RBC (Auto) U Hyaline Cast (Auto) U Epithel Cells (Auto) Urine Bacteria (Auto) Salicylates Urine Opiates Screen Ur Methadone, Qual Acetaminophen Urine Barbiturates Ur Phencyclidine (PCP) U Amphetamin/Meth Scrn MDMA (Ecstasy) Screen U Benzodiazepines Scrn Ur Cocaine Metabolite U Marijuana (THC) Screen Ethyl Alcohol mg/dL < 10.0 SARS-CoV-2, RNA, NAAT Hospital Course (1) Depression with suicidal ideation: (2) Generalized anxiety disorder with panic attacks: (3) Post traumatic stress disorder (PTSD): Plan 04/26/2023: Continue sertraline 50mg daily. Plan for family meeting tomorrow. melatonin 6mg HS prn. 04/25/2023: Increase sertraline to 50mg daily tomorrow. Discontinue iron supplement, switch to multivitamin with iron. Vistaril 10mg q4H prn for anxiety/panic attacks. 04/24/2023: The patient was admitted to the [facility] ([facility]) on q15 min checks (behavioral with suicide precautions) for safety. The patient will participate in group, recreational, and milieu therapies and will be offered additional individual and family sessions as clinically appropriate. -will start zoloft 25mg daily tomorrow morning -continue prior to admission calcium, iron, MVM supplements -discussed option for prazosin, she prefers not to start any additional medications at this time Mental Health & Subst Abuse Tx Therapist Name of Therapist: [facility]- Dr.Dalice Juancarlos PsyD Therapist's Therapy Appointment Comment: [address], [address] Post Discharge Appointments Primary Care Physician Name Of Family Doctor/PCP: [facility]-Lashaun Marinelli- Dr. Elmore Primary Care Date of Future Appointment with PCP: 05/06/2023 Time of Appointment with PCP: 4:20pm Provider Appointment Comment: Virtual- please log into portal for instructions Contact Information Discharge Discharge [address]: [address] [place] [id number] Discharge Plan Discharge Items Patient Disposition: Home - Self-Care Reason For Visit: SI WITH PLAN Discharge Diagnosis: Unspecified depressive disorder with anxious distress Activity: Resume your previous activity Non-emergency contact: Primary Care Provider and Therapist Call non-emergency contact if: you have any medication questions and your symptoms worsen Follow-up/Referrals: PCP,NO [Primary Care Provider] - Diet: Regular Addtl Attending Provider Instructions: Optional mobile apps we discussed: -Suicide safety plan -Virtual Hope Box SPECIAL CARE INSTRUCTIONS: 1. Follow through with your scheduled aftercare appointments. If unable to keep an appointment, please call to reschedule. 2. Take your medication only as prescribed. Medication should not be changed or stopped without the approval of your doctor. In the event of worsening symptoms or concerns about side effects, contact your doctor immediately. 3. Utilize new healthy coping skills, anger management skills, and stress management skills learned during your hospitalization. Journal feelings and process them with a support person. Identify stressors or situations that may result in relapse, deterioration or inappropriate behaviors and develop a plan to deal with those issues. 4. If your coping skills are ineffective and you are in crisis, contact your outpatient providers for direction. If unable to reach your providers, please call the [facility] CRISIS LINE AT , go to the [facility] walk-in center at [address], [address], [place], or go to the closest Emergency Room. 5. Avoid alcohol and un-prescribed drugs. 6. You have been provided with the Mental Health Advance Directives Pamphlet for your review. 7. Your condition is stable for discharge to outpatient level of care, but recovery is an ongoing process. Ifthoughts to harm yourself or others return, follow the safety plan developed during your stay. Planning for a safe return home includes securing weapons. Our treatment team recommends weaponsbe removed from the home until your outpatient provider reassesses your progress. In rare cases where the items themselvescannot be removed, guns and ammunitionshould be secured separatelyand keys stored by a reliable personoutside of the home. If you were admitted on an involuntary commitment, the police or other legal authorities may be involved in this process. AFTERCARE APPOINTMENTS: * Please call your insurance company prior to your scheduled appointment to confirm your aftercare providers are covered. Take your insurance information to your appointments. WHO TO CALL AND WHEN: Medical Emergencies: For questions or emergencies related to your hospital stay, please contact the Inpatient Behavioral Health Unit at [phone]. A knitted goods shaper is on-call 14/02 for the Behavioral Health Unit for emergencies At any time you feel your situation is an emergency, you may also call 911 immediately. National Crisis Line: 989 Pending Studies at Discharge: No Stand-Alone Forms: My [facility] Medications and DC Order Prescriptions: New hydroxyzine HCl 10 mg Tablet 10 mg PO DAILY PRN (Reason: anxiety/panic attack/insomnia) 30 Days Qty: 30 0RF sertraline 50 mg Tablet 50 mg PO QAM 30 Days Qty: 30 0RF Discharge Orders: Discharge Order (Routine); Ordered 04/27/23 Ordered By: Moriah Romero Admission Data Admit Date/Time: 04/23/23 22:42 Attending Provider: Moriah Roemro Admit Provider: Moriah Romero Primary Care Provider: PCP,NO Other Interventions: Discharge Summary Assessment (RN) Last Done: 04/27/23 10:44 PSY Interdisciplinary Discharge Planning Last Done: 04/27/23 10:46 Coding Level of Care Code 86136 D/C day mgmt > 30 min Diagnoses Depression with suicidal ideation F32.A; R45.851 Generalized anxiety disorder with panic attacks F41.1; F41.0 Post traumatic stress disorder (PTSD) F43.10
== END 2023-04-27 11:58 | disposition home or self-care (01) | DRG 881 ==
LOC: ED 17:08 → 3S 22:42